=== PATIENT | male | born 1970 | race Caucasian/White ===

== ENCOUNTER 2019-08-22 21:42 | Emergency (ER) | payer BC ==
[~2019-08-22] VITALS: Ht 185.4 cm; Wt 84.5 kg
--- NOTE | 2019-08-22 21:51 | NUR ---
PT STATES THAT HE TOLD REGISTRATION THAT HE WAS HAVING CHEST PAIN SO HE WOULDN'T HAVE TO WAIT FOR A ROOM.
[2019-08-22] MEDS ORDERED: KETOROLAC 30 MG/1 ML IVPush ONE (22:00)
[2019-08-22] MEDS ORDERED: SODIUM CHLORIDE FLUSH 10ML SYR IVF ONE (22:00)
[2019-08-22] MEDS ORDERED: MORPHINE SULFATE 4 MG/ML, 1ML IVPush PRN (22:00)
[2019-08-22] MEDS ORDERED: ONDANSETRON 2MG/ML, 2ML IVPush ONE (22:00)
[2019-08-22] MEDS ORDERED: KETOROLAC 30 MG/1 ML ONE (22:04)
[2019-08-22] MEDS ORDERED: ONDANSETRON 2MG/ML, 2ML ONE (22:05)
[2019-08-22 22:29] LABS: BASOPHILS # (AUTO) 0.02 x10^3/uL (0-0.1); BASOPHILS % (AUTO) 0 % (0-1); EOSINOPHILS # (AUTO) 0.01 x10^3/uL (0-0.4); EOSINOPHILS % (AUTO) 0 % (1-7); LYMPHOCYTES # (AUTO) 0.78 x10^3/uL (1-3.4); LYMPHOCYTES % (AUTO) 9 % (22-44); MD NO; MEAN CORPUSCULAR HEMOGLOBIN 29.8 pg (27.5-34.5); MEAN CORPUSCULAR HGB CONC 33.8 g/dL (33.2-36.2); MEAN PLATELET VOLUME 10.1 fL (7.4-10.4); MONOCYTES # (AUTO) 0.52 x10^3/uL (0.2-0.8); MONOCYTES % (AUTO) 6 % (2-9); NEUTROPHILS # (AUTO) 7.84 x10^3/uL (1.8-6.8); NEUTROPHILS % (AUTO) 86 % (42-75); PLATELET COUNT 200 x10^3/uL (130-400); RED BLOOD COUNT 5.06 x10^6/uL (4.38-5.82); RED CELL DISTRIBUTION WIDTH 12.5 % (9.4-14.8)
[2019-08-22 22:38] LABS: ALANINE AMINOTRANSFERASE 36 U/L (12-78); ALBUMIN 3.3 g/dL (3.4-5.0); ANION GAP 9 mmol/L (5-15); CALCIUM 8.7 mg/dL (8.5-10.1); CHLORIDE 108 mmol/L (98-107); CREATININE 1.17 mg/dL (0.7-1.3)
[2019-08-22 22:40] LABS: ALKALINE PHOSPHATASE 51 U/L (45-117); BILIRUBIN,TOTAL 1.6 mg/dL (0.2-1.0); TOTAL PROTEIN 6.8 g/dL (6.4-8.2)
[2019-08-22 23:17] LABS: TROPONIN I < 0.015 ng/mL (0.000-0.045)
[2019-08-22 23:23] LABS: MICROSCOPIC NOT IND
[2019-08-22 23:26] LABS: CULTURE INDICATED? NO
[2019-08-22] MEDS ORDERED: OMNIPAQUE 350 MG/ML, 100ML BOTTLE ONE (23:28)
[2019-08-22 23:36] VITALS: BP 139/82
== END 2019-08-22 23:40 | disposition home or self-care (01) ==
LOC: ED 22:29
DX: R10.13 Epigastric pain (principal); R17 Unspecified jaundice; Z90.49 Acquired absence of other specified parts of digestive tract
CPT/HCPCS: 36415; 74177; 80053; 81003; 83690; 84484; 85025; 96374; 96375; 99284; J1885; J2405; Q9967

== ENCOUNTER 2020-12-06 07:47 | Emergency (ER) | payer BC, OTHER ==
[~2020-12-06] VITALS: Ht 188 cm; Wt 81.7 kg
--- NOTE | 2020-12-06 08:27 | NUR ---
PT HAS CO KIDNEY STONE. PAIN IN FLANK AND W URINATION. REFUSING IV FOR MEDS. LABS AT BEDSIDE
[2020-12-06] MEDS ORDERED: ONDANSETRON 2MG/ML, 2ML IVPush ONE (08:30)
[2020-12-06] MEDS ORDERED: KETOROLAC 30 MG/1 ML IVPush ONE (08:30)
[2020-12-06 08:55] LABS: BASOPHILS % (AUTO) 1 % (0-1); EOSINOPHILS % (AUTO) 3 % (1-7); LYMPHOCYTES % (AUTO) 20 % (22-44); MEAN CORPUSCULAR HEMOGLOBIN 29.6 pg (27.5-34.5); MEAN CORPUSCULAR HGB CONC 34.3 g/dL (33.2-36.2); MEAN PLATELET VOLUME 10.5 fL (7.4-10.4); MONOCYTES % (AUTO) 5 % (2-9); NEUTROPHILS % (AUTO) 71 % (42-75); PLATELET COUNT 183 x10^3/uL (130-400); RED BLOOD COUNT 5.34 x10^6/uL (4.38-5.82); RED CELL DISTRIBUTION WIDTH 12.9 % (9.4-14.8)
[2020-12-06 08:56] LABS: ANION GAP 5 mmol/L (5-15); CHLORIDE 112 mmol/L (98-107); CREATININE 1.02 mg/dL (0.7-1.3)
[2020-12-06 08:57] LABS: ALBUMIN 3.8 g/dL (3.4-5.0)
[2020-12-06 09:05] LABS: MD SCAN
[2020-12-06 09:32] LABS: MICROSCOPIC INDICATED
--- NOTE | 2020-12-06 10:00 | NUR ---
PT RESTING, DENIES PAIN. READY FOR DC
[2020-12-06 10:20] VITALS: BP 120/83
--- NOTE | 2020-12-06 10:20 | NUR ---
Patientgiven discharge instructions and they have confirmed that they understand the instructions. Patient ambulatory with steady gait.
== END 2020-12-06 10:22 | disposition home or self-care (01) ==
LOC: ED 10:11
DX: N20.2 Calculus of kidney with calculus of ureter (principal)
CPT/HCPCS: 36415; 74176; 80048; 81001; 82040; 85025; 87086; 99284